=== PATIENT | female | born 1985 | race Caucasian/White ===

== ENCOUNTER 2017-06-25 08:25 | Day surgery (SDC) | payer OTHER ==
[~2017-06-25 08:25] MED LIST: Dexamethasone 4 MG/ML SDV ONE; Ketorolac 30 MG/ML SDV ONE; Lactated Ringers 1,000 ML IV SCH; Lidocaine 1% 4 ML ONE; Lidocaine 1%/Sod Bicarbonate in NS 8.4% 1 ML Syringe PRN; Midazolam 1 MG/ML 2 ML SDV ONE; Ondansetron 4 MG/2 ML SDV ONE; Propofol 200 MG/20 ML SDV ONE; Sodium Chloride 0.9% 10 ML Syringe FLUSH PRN; fentaNYL 100 MCG/2 ML SDV ONE
--- NOTE | 2017-06-25 09:21 | PCM.PREANE ---
Preanesthetic Assessment - Anesthesia/Transfusion/Family Hx Anesthesia History: No Prior Anesthesia Family History of Anesthesia Reaction: No - Review of Systems General: No Symptoms Pulmonary: No Symptoms Cardiovascular: No Symptoms Gastrointestinal: No Symptoms Neurological: No Symptoms (Last seizure was at age 16. Not taking any medications at [facility]. ) Other: Reports: None (Has been tested for hepatitis and is negative. Liver enzymes were normal on 05/15. ) - Physical Assessment NPO Status Date: 06/24/17 NPO Status Time: 19:00 O2 Sat by Pulse Oximetry: 96 Respiratory Rate: 16 Vital Signs: Last Vital Signs Temp 37.5 C 06/25/17 08:30 Pulse 84 06/25/17 08:30 Resp 16 06/25/17 08:30 BP 149/95 H 06/25/17 08:30 Pulse Ox 96 06/25/17 08:30 Height: 1.63 m Weight: 99.79 kg ASA Class: 2 Mental Status: Alert & Oriented x3 Airway Class: Mallampati = 1 Dentition: Reports: Andrews(s) (Two abcessed teeth, on antibiotics. Chipped front tooth. Dentist has given the okay to proceed with surgery today. ), Broken Tooth /Teeth (Temporary cap on back right molar. ) Thyro-Mental Finger Breadths: 3 Mouth Opening Finger Breadths: 3 ROM/Head Extension: Full Lungs: Clear to Auscultation, Normal Respiratory Effort Cardiovascular: Regular Rate, Regular Rhythm - Lab Values: Laboratory Last Values WBC 10.49 K/mm3 (3.98-10.04) H 06/25/17 09:01 RBC 4.61 M/mm3 (3.98-5.22) 06/25/17 09:01 Hgb 11.9 gm/L (11.2-15.7) 06/25/17 09:01 Hct 36.3 % (34.1-44.9) 06/25/17 09:01 MCV 78.7 fl (79.4-94.8) L 06/25/17 09:01 MCH 25.8 pg (25.6-32.2) 06/25/17 09:01 MCHC 32.8 g/dl (32.2-35.5) 06/25/17 09:01 RDW Std Deviation 44.3 fL (36.4-46.3) 06/25/17 09:01 Plt Count 319 K/mm3 (182-369) 06/25/17 09:01 MPV 10.5 fl (9.4-12.3) 06/25/17 09:01 Neut % (Auto) 58.8 % (34.0-71.1) 06/25/17 09:01 Lymph % (Auto) 31.0 % (19.3-51.7) 06/25/17 09:01 [place] % (Auto) 6.0 % (4.7-12.5) 06/25/17 09:01 Eos % (Auto) 3.7 (0.7-5.8) 06/25/17 09:01 Baso % (Auto) 0.3 % (0.1-1.2) 06/25/17 09:01 Neut # (Auto) 6.17 K/mm3 (1.56-6.13) H 06/25/17 09:01 Lymph # (Auto) 3.25 K/mm3 (1.18-3.74) 06/25/17 09:01 [place] # (Auto) 0.63 K/mm3 (0.24-0.36) H 06/25/17 09:01 Eos # (Auto) 0.39 K/mm3 (0.04-0.36) H 06/25/17 09:01 Baso # (Auto) 0.03 K/mm3 (0.01-0.08) 06/25/17 09:01 - Allergies Allergies/Adverse Reactions: Allergies Allergy/AdvReac Type Severity Reaction Status Date / Time Penicillins AdvReac Dizziness Verified 06/24/17 15:19 - Anesthesia Plan Beta Mark: Metoprolol Med Last Dose Date: 06/25/17 Med Last Dose Time: 07:00 - Acknowledgements Anesthesia Type Planned: General Anesthesia Pt an Appropriate Candidate for the Planned Anesthesia: Yes Alternatives and Risks of Anesthesia Discussed w Pt/Guardian: Yes Pt/Guardian Understands and Agrees with Anesthesia Plan: Yes PreAnesthesia Questionnaire HEENT History: Reports: Other (See Below) Other HEENT History: tooth abcess Cardiovascular History: Reports: Hypertension Respiratory History: Reports: None Gastrointestinal History: Reports: Cholelithiasis, Other (See Below) Other Gastrointestinal History: abnormal liver function tests Genitourinary History: Reports: Other (See Below) Other Genitourinary History: abnormal urine 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 (See Below) Other OB/BYN History: dysfunctional uterine bleeding Musculoskeletal History: Reports: None Neurological History: Reports: Seizure Psychiatric History: Reports: Anxiety Endocrine/Metabolic History: Reports: None Hematologic History: Reports: None Immunologic History: Reports: None Oncologic (Cancer) History: Reports: None Dermatologic History: Reports: Other (See Below) Other Dermatologic History: change in mole - Past Surgical History Head Surgeries/Procedures: Reports: None Respiratory Surgical History: Reports: None Musculoskeletal Surgical History: Reports: None Oncologic Surgical History: Reports: None - SUBSTANCE USE Smoking Status *Q: Never Smoker Recreational Drug Use History: No - HOME MEDS Home Medications: Home Meds Clindamycin HCl [Clindamycin HCl] 300 mg PO Q6H 06/24/17 [History] Metoprolol Succinate [Toprol Xl] 50 mg PO DAILY 06/24/17 [History] - CURRENT (IN HOUSE) MEDS Current Meds: Current Medications Lactated Ringer's (Ringers, Lactated) 1,000 mls @ 125 mls/hr IV ASDIRECTED MINDY Stop: 06/25/17 23:00 Last Admin: 06/25/17 09:00 Dose: 125 mls/hr Lidocaine/Sodium Bicarbonate (Buffered Lidocaine 1% In Ns 8.4%) 0.25 ml .XX ONETIME PRN PRN Reason: Prior to IV Start Stop: 06/25/17 18:00 Last Admin: 06/25/17 08:59 Dose: 0.25 ml Sodium Chloride (Saline Flush) 10 ml FLUSH ASDIRECTED PRN PRN Reason: Keep Vein Open Stop: 06/25/17 18:00 Discontinued Medications Dexamethasone (Dexamethasone) Confirm Administered Dose 4 mg .ROUTE .STK-MED ONE Stop: 06/25/17 07:04 Fentanyl (Sublimaze) Confirm Administered Dose 100 mcg .ROUTE .STK-MED ONE Stop: 06/25/17 07:05 Lidocaine HCl (Xylocaine-Mpf 1%) Confirm Administered Dose 4 mls @ as directed .ROUTE .STK-MED ONE Stop: 06/25/17 07:04 Ketorolac Tromethamine (Toradol) Confirm Administered Dose 30 mg .ROUTE .STK- MED ONE Stop: 06/25/17 07:04 Midazolam HCl (Versed 1 Mg/Ml) Confirm Administered Dose 2 mg .ROUTE .STK-MED ONE Stop: 06/25/17 07:05 Ondansetron HCl (Zofran) Confirm Administered Dose 4 mg .ROUTE .STK-MED ONE Stop: 06/25/17 07:04 Propofol (Diprivan 20 Ml) Confirm Administered Dose 200 mg .ROUTE .STK-MED ONE Stop: 06/25/17 07:04 Propofol (Diprivan 20 Ml) Confirm Administered Dose 200 mg .ROUTE .STK-MED ONE Stop: 06/25/17 07:11
[2017-06-25] MEDS ORDERED: fentaNYL 100 MCG/2 ML SDV IVPUSH PRN (10:29)
[2017-06-25] MEDS ORDERED: Ondansetron 4 MG/2 ML SDV IVPUSH PRN (10:29)
[2017-06-25] MEDS ORDERED: Propofol 200 MG/20 ML SDV ONE (10:33)
[2017-06-25] MEDS ORDERED: Lactated Ringers 1,000 ML ONE (10:37)
[2017-06-25] MEDS ORDERED: diphenhydrAMINE 50 MG/ML SDV ONE (10:42)
--- NOTE | 2017-06-25 10:57 | PCM.POSTAN ---
POST ANESTHESIA ASSESSMENT - MENTAL STATUS Mental Status: Somnolent - VITAL SIGNS Pulse Rate: 97 SaO2: 97 Resp Rate: 19 Blood Pressure: 144/88 Temperature: 99 F - RESPIRATORY Respiratory Status: Respiratory Rate WNL, Airway Patent, O2 Saturation Stable - CARDIOVASCULAR CV Status: Pulse Rate WNL, Blood Pressure Stable - GASTROINTESTINAL GI Status: No Symptoms - PAIN Pain Score: 0 - POST OP HYDRATION Hydration Status: Adequate & Stable
--- NOTE | 2017-06-25 11:05 | PCM.OPNOTE ---
- General Post-Op/Procedure Note Date of Surgery/Procedure: 06/25/17 Operative Procedure(s): D&C hysteroscopy 69335, endometrial ablation 34811. Pre Op Diagnosis: Dysfunctional uterine bleeding N93.8 Post-Op Diagnosis: Same Anesthesia Technique: General LMA Primary Surgeon: Kwame Silveira Anesthesia Provider: Veronica Rodriguez Dragline Operator Helper: Nhung Coy (PAS) Dragline Operator Helper: Zachary Montes (MS4) Fluid Replacement, Intraop: 1,300 EBL in mLs: 10 Drain/Tube Comments:: None Complications: None Condition: Good Free Text/Narrative:: Patient was transported to operating room #3 and placed under general anesthesia with LMA SCDs in place and functioning prior to surgery Ancef 2 g given intravenously prior surgery no allergic reactions. She was placed in the low dorsal lithotomy position and prepared and draped in a sterile fashion timeout performed confirming name date of and procedure as D&C hysteroscopy and endometrial ablation. Examination under anesthesia revealed anterior uterus no adnexal masses the endocervical canal sounded to 3-3.5 cm and endometrial cavity to 11 cm estimating total endometrial cavity of approximately 8.5 cm in depth (ablation machine will only allowed to 6.5 so ablation was performed on the anterior and posterior surface of the endometrial cavity including the fundus of the uterus. The hysteroscopy showed no specific polyps both tubal ostia were visualized. The ablation was performed completing the endometrial cavity integrity and settings of 6.5 depth will 0.5 with 161 power and the ablation lasted for 36 seconds. Post-ablation hysteroscopy showed good charring of the endometrial cavity the lower uterine segment and proximal cervical canal did not show as much charring. Patient was transported postanesthesia care unit in satisfactory condition no blood transfusions were required to talk with her and patient will probably be dismissed today to return to clinic in 4 weeks. One set of pictures with 11 images image 001 image 002 image 003 and image 004 shows the right tubal ostia image 005 shows the fundus of the uterus image 006 shows the left tubal ostia image 007 shows the lower uterine segment and proximal endocervical canal image 008 shows area of charring after completion of the ablation looking from the lower uterine segment image 009 shows charring of the fundus of the endometrial cavity image 010 shows the right tubal ostia area post ablation image 011 shows the left tubal ostia area after ablation
[2017-06-25] MEDS ORDERED: Acetaminophen/oxyCODONE 325-5 MG Tab PO SCH (11:30)
--- NOTE | 2017-06-25 11:30 | PCM48HPAN ---
Post Anesthesia Note - EVALUATION WITHIN 48HRS OF ANESTHETIC Vital Signs in Normal Range: Yes Patient Participated in Evaluation: Yes Respiratory Function Stable: Yes Airway Patent: Yes Cardiovascular Function Stable: Yes Hydration Status Stable: Yes Pain Control Satisfactory: Yes Nausea and Vomiting Control Satisfactory: Yes Mental Status Recovered: Yes ("just tired")
[2017-06-25 13:29] VITALS: BP 138/88
== END 2017-06-25 13:45 | disposition home or self-care (01) ==
LOC: JD.SDS 08:25
PROVIDERS: ATTEND Obstetrics & Gynecology
PROC: 0UDB8ZZ Extraction of Endometrium, Via Natural or Artificial Opening Endoscopic (ICD-10-PCS; principal; 2017-06-25)
PROC: 0U5 Female Reproductive System, Destruction (ICD-10-PCS; 2017-06-25)
DX: N93.8 Other specified abnormal uterine and vaginal bleeding (principal); F41.9 Anxiety disorder, unspecified; I10 Essential (primary) hypertension; Z88.0 Allergy status to penicillin; Z79.899 Other long term (current) drug therapy
CPT/HCPCS: 36415; 58563; 84702; 85025; A9270; J1100; J1200; J1885; J2250; J2405; J3010; J7120; 00952; J2704

== ENCOUNTER 2017-07-02 19:24 | Emergency (ER) | payer OTHER ==
[2017-07-02 19:50] VITALS: BP 176/94
--- NOTE | 2017-07-02 21:25 | EDM.PDOC ---
ED HPI GENERAL MEDICAL PROBLEM - General Chief Complaint: Allergic Reaction Stated Complaint: RASH,NUMBNESS ARMS & LEGS Time Seen by Provider: 07/02/17 20:15 Source of Information: Reports: Patient, Family (), RN Notes Reviewed History Limitations: Reports: No Limitations - History of Present Illness INITIAL COMMENTS - FREE TEXT/NARRATIVE: The patient states that she underwent a D&C, hysteroscopy, and endometrial ablation one week ago today, 06/25/2017, per Dr. Silveira. She states that she went to the [place] emergency department on 06/29/2017 for severe leg cramps, swelling to the dorsal aspect of her right hand (where she had had an IV) and a rash to the posterior aspect of her right hand extending up her forearm. A CBC, CMP, amylase, lipase, CRP, and urinalysis were performed. Strangely, the patient was diagnosed with bacterial vaginosis despite the fact that the patient did not have any vaginal complaints, and no pelvic exam had been performed. Apparently they made the diagnosis based on an elevated WBC count of 14.0. She was prescribed ciprofloxacin and Flagyl, which she has been taking. He states that she spoke to Dr. Silveira's nurse this morning, who in turn spoke to Dr. Silveira before calling the patient back at 17:30 tonight with the recommendation for the patient to come to our ED for evaluation. In the meantime, the patient's leg cramps, right hand swelling, and right upper extremity rash have resolved. The patient reports having tingling and numbness to her bilateral hands, and bilateral lower extremities, left more than right, today. No prior similar symptoms, although the patient acknowledges that she has been feeling anxious for about a year. The patient's PCP is Lexus Kelly. 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, Psychiatric History: Reports: Anxiety (untreated) - Past Surgical History Female Surgical History: Reports: D&C (x 1), Endometrial Ablation, Other ( See Below) (Hysteroscopy) Social & Family History - Family History Family Medical History: Noncontributory - Tobacco Use Smoking Status *Q: Never Smoker Second Hand Smoke Exposure: No - Caffeine Use Caffeine Use: Reports: None - Alcohol Use Alcohol Use History: Yes Alcohol Use Frequency: Socially - Recreational Drug Use Recreational Drug Use: No - Living Situation & Occupation Living situation: Reports: , with Spouse, with Family (3 kids, mother) Occupation: Unemployed ED ROS ALLERGIC REACTION - Review of Systems Review Of Systems: See Below Constitutional: Reports: No Symptoms HEENT: Reports: No Symptoms Respiratory: Reports: No Symptoms Cardiovascular: Reports: No Symptoms Endocrine: Reports: No Symptoms GI/Abdominal: Reports: No Symptoms : Reports: No Symptoms Musculoskeletal: Reports: No Symptoms Skin: Reports: No Symptoms Neurological: Reports: No Symptoms Psychiatric: Reports: No Symptoms Hematologic/Lymphatic: Reports: No Symptoms Immunologic: Reports: No Symptoms ED EXAM GENERAL NO PERIP PULSE - Physical Exam Exam: See Below Exam Limited By: No Limitations General Appearance: Alert, WD/WN, No Apparent Distress Eye Exam: Bilateral Eye: Normal Inspection Ears: Normal External Exam, Hearing Grossly Normal Nose: Normal Inspection, No Blood Throat/Mouth: Normal Inspection, Normal Lips, Normal Voice, No Airway Compromise Head: Atraumatic, Normocephalic Neck: Normal Inspection, Full Range of Motion Respiratory/Chest: No Respiratory Distress, Lungs Clear, Normal Breath Sounds, No Accessory Muscle Use Cardiovascular: Normal Peripheral Pulses, Regular Rate, Rhythm, No Gallop, No JVD, No Murmur, No Rub GI/Abdominal: Normal Bowel Sounds, Soft, Non-Tender, No Organomegaly, No Distention, No Abnormal Bruit, No Mass (Female) Exam: Deferred Rectal (Female) Exam: Deferred Back Exam: Normal Inspection, Full Range of Motion, NT Extremities: Normal Inspection, Normal Range of Motion, No Pedal Edema, Normal Capillary Refill Neurological: Alert, Oriented, Normal Cognition, No Motor/Sensory Deficits Psychiatric: Normal Affect Skin Exam: Warm, Dry, Intact, Normal Color, No Rash Lymphatic: No Adenopathy EKG INTERPRETATION EKG Date: 07/02/17 Time: 20:48 Rhythm: NSR Rate (Beats/Min): 77 [place]: Normal P-Wave: Present QRS: Normal ST-T: Normal QT: Normal Comparison: NA - No Prior EKG Course - Vital Signs Last Recorded V/S: Last Vital Signs Temp 36.3 C 07/02/17 19:46 Pulse 89 07/02/17 19:46 Resp 16 07/02/17 19:46 BP 176/94 H 07/02/17 19:46 Pulse Ox 100 07/02/17 19:46 Orthostatic Blood Pressure [ 169/91 Standing] Orthostatic Blood Pressure [ 156/86 Sitting] Orthostatic Blood Pressure [ 156/91 Supine] - Orders/Labs/Meds Orders: Active Orders 24 hr Category Date Time Status EKG Documentation Completion [RC] STAT Care 07/02/17 20:35 Active Orthostatic Vital Signs [RC] STAT Care 07/02/17 20:35 Active Ang Chest [CT] Stat Exams 07/02/17 23:05 Taken Chest 2V [CR] Stat Exams 07/02/17 20:35 Taken BLOOD GAS ARTERIAL [BG] Stat Lab 07/02/17 20:35 Results Sodium Chloride 0.9% [Normal Saline] 1,000 ml Med 07/02/17 23:15 Active IV ASDIRECTED Medication Orders Sodium Chloride (Normal Saline) 1,000 mls @ 150 mls/hr IV ASDIRECTED MINDY Last Admin: 07/02/17 23:17 Dose: 150 mls/hr Labs: Laboratory Tests 07/02/17 07/02/17 07/02/17 Range/Units 20:35 20:57 21:03 WBC 14.97 H (3.98-10.04) K/mm3 RBC 4.71 (3.98-5.22) M/mm3 Hgb 11.9 (11.2-15.7) gm/L Hct 37.0 (34.1-44.9) % MCV 78.6 L (79.4-94.8) fl MCH 25.3 L (25.6-32.2) pg MCHC 32.2 (32.2-35.5) g/dl RDW Std Deviation 43.6 (36.4-46.3) fL Plt Count 294 (182-369) K/mm3 MPV 10.3 (9.4-12.3) fl Neutrophils % (Manual) 70 H (40-60) % Band Neutrophils % 0 (0-10) % Lymphocytes % (Manual) 28 (20-40) % Atypical Lymphs % 0 % Monocytes % (Manual) 1 L (2-10) % Eosinophils % (Manual) 1 (0.7-5.8) % Basophils % (Manual) 0 L (0.1-1.2) Platelet Estimate Adequate Plt Morphology Comment Normal Poikilocytosis 1+ slight Anisocytosis 1+ slight RBC Morph Comment Not Reportable PT (8.0-13.0) SECONDS INR APTT (22-36) SECONDS D-Dimer, Quantitative (0.19-0.59) mg/L Puncture Site Rt radial ABG pH 7.45 (7.35-7.45) ABG pCO2 33.9 L (35.0-45.0) mmHg ABG pO2 94.0 (80.0-100.0) mmHg ABG HCO3 23.4 (22.0-26.0) meq/L ABG O2 Saturation 98.1 H (96.0-97.0) % ABG Base Excess 0.4 (-2-2.0) O2 Delivery Device Room air FiO2 0.00 L (21.00-100.00) % Sodium (136-145) mEq/L Potassium (3.5-5.1) mEq/L Chloride (98-107) mEq/L Carbon Dioxide (21-32) mEq/L Anion Gap (5-15) BUN (7-18) mg/dL Creatinine (0.55-1.02) mg/dL Est Cr Clr Drug Dosing mL/min Estimated GFR (MDRD) (>60) mL/min BUN/Creatinine Ratio (14-18) Glucose (74-106) mg/dL Calcium (8.5-10.1) mg/dL Magnesium (1.8-2.4) mg/dl Total Bilirubin (0.2-1.0) mg/dL AST (15-37) U/L ALT (14-59) U/L Alkaline Phosphatase (46-116) U/L Troponin I (0.00-0.056) ng/mL NT-Pro-B Natriuret Pep (0-125) pg/mL Total Protein (6.4-8.2) g/dl Albumin (3.4-5.0) g/dl Globulin gm/dL Albumin/Globulin Ratio (1-2) TSH 3rd Generation (0.358-3.74) uIU/mL Urine Color Yellow (Yellow) Urine Appearance Clear (Clear) Urine pH 7.0 (5.0-8.0) Ur Specific Otis 1.020 (1.005-1.030) Urine Protein Negative (Negative) Urine Glucose (UA) Negative (Negative) Urine Ketones Negative (Negative) Urine Occult Blood Negative (Negative) Urine Nitrite Negative (Negative) Urine Bilirubin Negative (Negative) Urine Urobilinogen 0.2 (0.2-1.0) Ur Leukocyte Esterase Negative (Negative) Urine RBC Not seen (0-5) /hpf Urine WBC 0-5 (0-5) /hpf Ur Epithelial Cells 5-10 H (0-5) /hpf Urine Bacteria Not seen (FEW) /hpf Urine Mucus Not seen (FEW) /hpf 07/02/17 07/02/17 Range/Units 21:03 21:03 WBC (3.98-10.04) K/mm3 RBC (3.98-5.22) M/mm3 Hgb (11.2-15.7) gm/L Hct (34.1-44.9) % MCV (79.4-94.8) fl MCH (25.6-32.2) pg MCHC (32.2-35.5) g/dl RDW Std Deviation (36.4-46.3) fL Plt Count (182-369) K/mm3 MPV (9.4-12.3) fl Neutrophils % (Manual) (40-60) % Band Neutrophils % (0-10) % Lymphocytes % (Manual) (20-40) % Atypical Lymphs % % Monocytes % (Manual) (2-10) % Eosinophils % (Manual) (0.7-5.8) % Basophils % (Manual) (0.1-1.2) Platelet Estimate Plt Morphology Comment Poikilocytosis Anisocytosis RBC Morph Comment PT 10.2 (8.0-13.0) SECONDS INR 0.94 APTT 27 (22-36) SECONDS D-Dimer, Quantitative 0.89 H (0.19-0.59) mg/L Puncture Site ABG pH (7.35-7.45) ABG pCO2 (35.0-45.0) mmHg ABG pO2 (80.0-100.0) mmHg ABG HCO3 (22.0-26.0) meq/L ABG O2 Saturation (96.0-97.0) % ABG Base Excess (-2-2.0) O2 Delivery Device FiO2 (21.00-100.00) % Sodium 140 (136-145) mEq/L Potassium 3.3 L (3.5-5.1) mEq/L Chloride 105 (98-107) mEq/L Carbon Dioxide 29 (21-32) mEq/L Anion Gap 9.3 (5-15) BUN 10 (7-18) mg/dL Creatinine 0.6 (0.55-1.02) mg/dL Est Cr Clr Drug Dosing 115.16 mL/min Estimated GFR (MDRD) > 60 (>60) mL/min BUN/Creatinine Ratio 16.7 (14-18) Glucose 121 H (74-106) mg/dL Calcium 9.3 (8.5-10.1) mg/dL Magnesium 2.0 (1.8-2.4) mg/dl Total Bilirubin 0.2 (0.2-1.0) mg/dL AST 43 H (15-37) U/L ALT 91 H (14-59) U/L Alkaline Phosphatase 85 (46-116) U/L Troponin I < 0.017 (0.00-0.056) ng/mL NT-Pro-B Natriuret Pep 122 (0-125) pg/mL Total Protein 7.8 (6.4-8.2) g/dl Albumin 3.4 (3.4-5.0) g/dl Globulin 4.4 gm/dL Albumin/Globulin Ratio 0.8 L (1-2) TSH 3rd Generation 3.054 (0.358-3.74) uIU/mL Urine Color (Yellow) Urine Appearance (Clear) Urine pH (5.0-8.0) Ur Specific Otis (1.005-1.030) Urine Protein (Negative) Urine Glucose (UA) (Negative) Urine Ketones (Negative) Urine Occult Blood (Negative) Urine Nitrite (Negative) Urine Bilirubin (Negative) Urine Urobilinogen (0.2-1.0) Ur Leukocyte Esterase (Negative) Urine RBC (0-5) /hpf Urine WBC (0-5) /hpf Ur Epithelial Cells (0-5) /hpf Urine Bacteria (FEW) /hpf Urine Mucus (FEW) /hpf Meds: Medications Generic Name Dose Route Start Last Admin Trade Name Jeferson PRN Reason Stop Dose Admin Sodium Chloride 1,000 mls @ 150 mls/hr 07/02/17 23:15 07/02/17 23:17 Normal Saline IV 150 mls/hr ASDIRECTED MINDY Administration Discontinued Medications Generic Name Dose Route Start Last Admin Trade Name Freq PRN Reason Stop Dose Admin Iopamidol 100 ml 07/02/17 23:23 07/02/17 23:47 Isovue-370 (76%) IVPUSH 07/02/17 23:24 100 ml ONETIME ONE Administration Iopamidol 40 ml 07/02/17 23:23 07/02/17 23:47 Isovue-370 (76%) IVPUSH 07/02/17 23:24 40 ml ONETIME ONE Administration - Re-Assessments/Exams Free Text/Narrative Re-Assessment/Exam: 07/02/17 21:18 Two-view chest radiograph appears to be grossly normal. Cardiac silhouette is within normal limits. No pulmonary vascular congestion. No pleural effusions. No focal infiltrate. No pneumothorax. Formal read per the Radiologist pending. 07/02/17 22:56 The patient is not orthostatic. 07/02/17 23:07 Test results discussed with the patient and her . The workup so far indicates the patient has a relatively mild acute respiratory alkalosis, which is likely responsible for her symptoms. Her d-dimer is modestly elevated at 0.89. I explained that while I do not clinically suspect she has a PE, I cannot rule out. The patient stated that she felt it was better to be safe than sorry, therefore elected to proceed with a CT angiogram to rule out a PE. 07/03/17 00:25 CT angiogram of the chest is read by [facility] as: No evidence of pulmonary embolism. Fatty liver. Cholelithiasis. 07/03/17 00:31 CT angiogram results discussed with the patient and her . As above, the patient's symptoms are most likely due to anxiety. The patient relates that she was prescribed Wellbutrin about a year ago, but then had anxiety about taking an antianxiety medication, therefore never started it. I recommended she follow- up with her PCP, Lexus Kelly, to discuss treatment options. Departure - Departure Time of Disposition: 00:32 Disposition: Home, Self-Care 01 Condition: Good Clinical Impression: Hyperventilation syndrome, Anxiety - Discharge Information Referrals: Lexus Kelly PA-C [Primary Care Provider] - Forms: ED Department Discharge Additional Instructions: You were seen in the emergency room for tingling and numbness of both of your lower extremities and both of your hands. Workup in the ER included blood work, an arterial blood gas, a urinalysis, an ECG, a chest x-ray, a CT angiogram of her chest, and positional blood pressure checks. Your workup showed that you have been hyperventilating, likely due to anxiety, as other known causes of hyperventilation have been ruled out. We recommend you follow-up with your PCP, Lexus Kelly, to discuss anxiety treatment options. If any other problems, please do not hesitate to return to the ER. - My Orders Last 24 Hours: My Active Orders 07/02/17 20:35 EKG Documentation Completion [RC] STAT Orthostatic Vital Signs [RC] STAT Chest 2V [CR] Stat BLOOD GAS ARTERIAL [BG] Stat 07/02/17 23:05 Ang Chest [CT] Stat 07/02/17 23:15 Sodium Chloride 0.9% [Normal Saline] 1,000 ml IV ASDIRECTED - Assessment/Plan Last 24 Hours: My Active Orders 07/02/17 20:35 EKG Documentation Completion [RC] STAT Orthostatic Vital Signs [RC] STAT Chest 2V [CR] Stat BLOOD GAS ARTERIAL [BG] Stat 07/02/17 23:05 Ang Chest [CT] Stat 07/02/17 23:15 Sodium Chloride 0.9% [Normal Saline] 1,000 ml IV ASDIRECTED
[2017-07-02] MEDS ORDERED: Sodium Chloride 0.9% 1,000 ML IV SCH (23:15)
[2017-07-02] MEDS ORDERED: Iopamidol 755 MG/ML 50 ML Bottle IVPUSH ONE (23:23)
[2017-07-02] MEDS ORDERED: Iopamidol 755 Mg/ML 100 ML Bottle IVPUSH ONE (23:23)
--- NOTE | 2017-07-03 07:17 | CR ---
Chest: Two views of the chest were obtained. Comparison: No previous study. Heart size and mediastinum are normal. Lungs are clear. Bony structures are within normal limits. Impression: 1. Nothing acute is identified on two-view chest x-ray. Diagnostic code #1
--- NOTE | 2017-07-03 08:36 | CT ---
CT chest Technique: Multiple axial sections through the chest were obtained. Intravenous contrast was utilized. Study was performed as a pulmonary angiogram protocol. Findings: Mediastinum and hilar regions show no adenopathy or mass. No filling defects are seen to indicate pulmonary embolism. No pericardial thickening is seen. Vague density is noted within the gallbladder suspicious for sludge or gallstone. Lungs are clear. No pleural effusions are seen. Bone window settings were reviewed which show no discrete osseous abnormality. Impression: 1. No findings of pulmonary embolism. 2. Sludge or gallstone within the gallbladder. 2. CT study of the chest performed as a pulmonary angiogram protocol is otherwise unremarkable. Diagnostic code #2 I agree with preliminary report issued by [facility] ([facility] preliminary report dictated on 07/03/17, 1:22 AM Central Time)
== END 2017-07-03 00:40 | disposition home or self-care (01) ==
LOC: JD.ED 19:24
DX: F45.8 Other somatoform disorders (principal); F41.9 Anxiety disorder, unspecified; I10 Essential (primary) hypertension; Z79.899 Other long term (current) drug therapy; Z88.0 Allergy status to penicillin; Z00.00 Encounter for general adult medical examination without abnormal findings; N93.8 Other specified abnormal uterine and vaginal bleeding
CPT/HCPCS: 36415; 71020; 71275; 80053; 81001; 83735; 83880; 84443; 84484; 85025; 85379; 85610; 85730; 87210; 87808; 93005; 96360; 99285; J7040; Q9967; 36600; 82803; 99284